=== PATIENT | female | born 1945 | race Caucasian/White ===

== ENCOUNTER → 2017-11-20 | Outpatient (CLI) | payer MEDICARE ==
[2017-11-20 12:48] LABS: BASOPHILS # (AUTO) 0.02 x10^3/uL (0-0.1); BASOPHILS % (AUTO) 0 % (0-1); EOSINOPHILS # (AUTO) 0.01 x10^3/uL (0-0.4); EOSINOPHILS % (AUTO) 0 % (1-7); LYMPHOCYTES # (AUTO) 1.35 x10^3/uL (1-3.4); LYMPHOCYTES % (AUTO) 21 % (22-44); MD NO; MEAN CORPUSCULAR HGB CONC 33.7 g/dL (32.4-35.8); MEAN CORPUSCULAR VOLUME 91.9 fL (80-100); MONOCYTES # (AUTO) 0.45 x10^3/uL (0.2-0.8); MONOCYTES % (AUTO) 7 % (2-9); NEUTROPHILS % (AUTO) 72 % (42-75); PLATELET COUNT 225 x10^3/uL (130-400); RED BLOOD COUNT 4.97 x10^6/uL (3.82-5.3); RED CELL DISTRIBUTION WIDTH 14.8 % (9.6-15.2)
[2017-11-20 12:57] LABS: MICROSCOPIC NOT IND
[2017-11-20 13:00] LABS: ALANINE AMINOTRANSFERASE 49 U/L (12-78); ALBUMIN 4.3 g/dL (3.4-5.0); ANION GAP 7 mmol/L (5-15); CHLORIDE 107 mmol/L (98-107); CREATININE 0.91 mg/dL (0.55-1.02)
[2017-11-20 13:02] LABS: ALKALINE PHOSPHATASE 87 U/L (45-117); BILIRUBIN,TOTAL 0.6 mg/dL (0.2-1.0); TOTAL PROTEIN 7.7 g/dL (6.4-8.2)
== END | disposition home or self-care (01) ==
LOC: STAR 11:25
PROVIDERS: ATTEND Urology
DX: Z01.818 Encounter for other preprocedural examination (principal); D49.519 Neoplasm of unspecified behavior of unspecified kidney
CPT/HCPCS: 36415; 80053; 81003; 85025; 87086; 93005

== ENCOUNTER 2017-12-03 05:32 | Inpatient (IN) | payer MEDICARE, OTHER ==
[~2017-12-03] VITALS: Ht 172.7 cm; Wt 70.9 kg
[2017-12-03] MEDS ORDERED: THROMBIN 5,000 UNIT VIAL TP ONE ×2 (06:07→10:48)
[2017-12-03] MEDS ORDERED: METHYLENE BLUE 10 MG/ML 10ML ONE (06:07)
[2017-12-03] MEDS ORDERED: LACTATED RINGERS 1,000 ML IV SCH (06:07)
[2017-12-03 06:10] VITALS: BP 176/96
[2017-12-03] MEDS ORDERED: FUROSEMIDE 20 MG/2 ML ONE (06:10)
[2017-12-03] MEDS ORDERED: MANNITOL PMX 20% 500 ML ONE (06:11)
[2017-12-03] MEDS ORDERED: GENTAMICIN 80 MG/2 ML ONE (06:11)
[2017-12-03] MEDS ORDERED: EPINEPHRINE 1 MG/ML, 1ML ONE (06:36)
[2017-12-03] MEDS ORDERED: MIDAZOLAM 1 MG/ML, 2ML ONE (07:11)
[2017-12-03] MEDS ORDERED: FENTANYL PF 250 MCG/5ML ONE ×3 (07:13→09:00)
[2017-12-03] MEDS ORDERED: PROPOFOL 10 MG/ML, 20ML ONE (07:17)
[2017-12-03] MEDS ORDERED: DEXAMETHASONE 4 MG/ML, 1ML ONE ×2 (07:17→07:47)
[2017-12-03] MEDS ORDERED: ROCURONIUM 10MG/ML,5ML ONE ×2 (07:17→09:56)
[2017-12-03] MEDS ORDERED: KETAMINE 10 MG/ML, 20ML ONE (07:27)
[2017-12-03] MEDS ORDERED: ACETAMINOPHEN 500 MG TABLET PO ONE (07:30)
[2017-12-03] MEDS ORDERED: OxyconTIN ER 10 MG TAB.ER PO ONE (07:30)
[2017-12-03] MEDS ORDERED: SCOPOLAMINE PATCH, 1.5MG PATCH.TD72 TD ONE (07:30)
[2017-12-03] MEDS ORDERED: ONDANSETRON ODT 8 MG PO ONE (07:30)
[2017-12-03] MEDS ORDERED: GABAPENTIN 300 MG CAPSULE PO ONE (07:30)
[2017-12-03] MEDS ORDERED: BUPIVACAINE/PF 0.25% ONE (07:32)
[2017-12-03] MEDS ORDERED: GLYCOPYRROLATE 0.2MG/1ML, 5ML ONE (07:47)
[2017-12-03] MEDS ORDERED: NEOSTIGMINE 1 MG/ML, 10ML ONE (07:47)
[2017-12-03] MEDS ORDERED: ALBUTEROL SULFATE 2.5 MG/3 ML NPPB PRN (09:30)
[2017-12-03] MEDS ORDERED: PROMETHAZINE 12.5 MG SUPP PR PRN (09:30)
[2017-12-03] MEDS ORDERED: OXYcodone 5 MG/5 ML ORAL.SOL UDC PO PRN (09:30)
[2017-12-03] MEDS ORDERED: hydrALAzine 20 MG/ML, 1ML IV PRN (09:30)
[2017-12-03] MEDS ORDERED: MIDAZOLAM 1 MG/ML, 2ML IV PRN (09:30)
[2017-12-03] MEDS ORDERED: ONDANSETRON ODT 8 MG PO PRN (09:30)
[2017-12-03] MEDS ORDERED: PROMETHAZINE 25 MG/ML, 1ML IV PRN (09:30)
[2017-12-03] MEDS ORDERED: MEPERIDINE/PF 25MG/0.5ML IVPush PRN (09:30)
[2017-12-03] MEDS ORDERED: LABETALOL 5MG/ML, 20ML IV PRN (09:30)
[2017-12-03] MEDS ORDERED: NALOXONE 0.4 MG/ML, 1ML ONE (11:44)
[2017-12-03] MEDS ORDERED: HYDROmorphone PCA 30 MG/30 ML IV PRN ×3 (12:00→19:30)
[2017-12-03 12:33] LABS: ANION GAP 8 mmol/L (5-15); CALCIUM 7.5 mg/dL (8.5-10.1); CHLORIDE 110 mmol/L (98-107); CREATININE 0.73 mg/dL (0.55-1.02)
[2017-12-03] MEDS ORDERED: FENTANYL PF 100 MCG/2ML ONE (12:44)
[2017-12-03] MEDS: FENTANYL PF 100 MCG/2ML IV PRN ×3 (12:45→13:31)
[2017-12-03] MEDS ORDERED: LABETALOL 5MG/ML, 20ML ONE (12:52)
[2017-12-03] MEDS ORDERED: hydrALAzine 20 MG/ML, 1ML ONE (13:02)
[2017-12-03] MEDS ORDERED: morphine SULFATE 10 MG/ML, 1ML ONE (13:37)
[2017-12-03] MEDS: MORPHINE SULFATE 4 MG/ML, 1ML IVPush PRN ×2 (13:39→13:46)
[2017-12-03 15:26] VITALS: BP 123/69
[2017-12-03] MEDS ORDERED: Postop antibiotic to be continued for longer than 24 hours XX PRN (15:30)
[2017-12-03] MEDS ORDERED: DO NOT GIVE MC SCH (15:30)
[2017-12-03] MEDS: LACTATED RINGERS 1,000 ML IV SCH (15:38)
[2017-12-03] MEDS: CEFAZOLIN PMX 1GM/50ML 50 ML IVPB SCH ×2 (16:39→23:59)
[2017-12-03] MEDS: ACETAMINOPHEN 500 MG TABLET PO SCH ×2 (17:09→21:30)
[2017-12-03 17:50] VITALS: BP 135/79
[2017-12-03 18:15] LABS: BASOPHILS # (AUTO) 0.01 x10^3/uL (0-0.1); BASOPHILS % (AUTO) 0 % (0-1); EOSINOPHILS % (AUTO) 0 % (1-7); LYMPHOCYTES % (AUTO) 3 % (22-44); MD NO; MEAN CORPUSCULAR HEMOGLOBIN 31.3 pg (27.0-34.8); MEAN CORPUSCULAR HGB CONC 33.4 g/dL (32.4-35.8); MEAN CORPUSCULAR VOLUME 93.8 fL (80-100); MEAN PLATELET VOLUME 7.8 fL (7.4-10.4); MONOCYTES # (AUTO) 0.78 x10^3/uL (0.2-0.8); MONOCYTES % (AUTO) 5 % (2-9); NEUTROPHILS # (AUTO) 13.28 x10^3/uL (1.8-6.8); NEUTROPHILS % (AUTO) 92 % (42-75); PLATELET COUNT 190 x10^3/uL (130-400); RED CELL DISTRIBUTION WIDTH 15.3 % (9.6-15.2)
[2017-12-03 20:03] VITALS: BP 115/69
[2017-12-04] VITALS (8 sets, daily range): BP systolic 111–147; BP diastolic 51–64
[2017-12-04] MEDS: ACETAMINOPHEN 500 MG TABLET PO SCH ×5 (03:33→23:52)
[2017-12-04] MEDS: LACTATED RINGERS 1,000 ML IV SCH ×2 (05:36→14:55)
[2017-12-04] MEDS: CEFAZOLIN PMX 1GM/50ML 50 ML IVPB SCH ×3 (07:56→23:52)
[2017-12-04 13:06] LABS: BASOPHILS # (AUTO) 0.05 x10^3/uL (0-0.1); BASOPHILS % (AUTO) 1 % (0-1); EOSINOPHILS % (AUTO) 0 % (1-7); LYMPHOCYTES # (AUTO) 0.91 x10^3/uL (1-3.4); LYMPHOCYTES % (AUTO) 9 % (22-44); MD NO; MEAN CORPUSCULAR HEMOGLOBIN 31.3 pg (27.0-34.8); MEAN CORPUSCULAR HGB CONC 33.9 g/dL (32.4-35.8); MEAN CORPUSCULAR VOLUME 92.4 fL (80-100); MEAN PLATELET VOLUME 7.4 fL (7.4-10.4); MONOCYTES # (AUTO) 0.68 x10^3/uL (0.2-0.8); MONOCYTES % (AUTO) 7 % (2-9); NEUTROPHILS # (AUTO) 8.44 x10^3/uL (1.8-6.8); NEUTROPHILS % (AUTO) 84 % (42-75); PLATELET COUNT 170 x10^3/uL (130-400); RED BLOOD COUNT 3.58 x10^6/uL (3.82-5.3)
[2017-12-04 13:16] LABS: ANION GAP 6 mmol/L (5-15); CALCIUM 7.6 mg/dL (8.5-10.1); CHLORIDE 101 mmol/L (98-107)
[2017-12-04] MEDS ORDERED: SODIUM CHLORIDE 0.9%, 500ML IVBOLUS ONE (18:30)
[2017-12-05 00:32] VITALS: BP 136/71
[2017-12-05 03:59] VITALS: BP 141/70
[2017-12-05] MEDS: ACETAMINOPHEN 500 MG TABLET PO SCH ×4 (05:42→23:27)
[2017-12-05 09:12] VITALS: BP 130/61
[2017-12-05] MEDS: LACTATED RINGERS 1,000 ML IV SCH ×2 (09:32→23:27)
[2017-12-05] MEDS: CEFAZOLIN PMX 1GM/50ML 50 ML IVPB SCH ×2 (09:33→18:35)
[2017-12-05 11:21] LABS: BASOPHILS % (AUTO) 0 % (0-1); EOSINOPHILS # (AUTO) 0.01 x10^3/uL (0-0.4); EOSINOPHILS % (AUTO) 0 % (1-7); LYMPHOCYTES # (AUTO) 0.47 x10^3/uL (1-3.4); LYMPHOCYTES % (AUTO) 5 % (22-44); MD NO; MEAN CORPUSCULAR HEMOGLOBIN 31.5 pg (27.0-34.8); MEAN CORPUSCULAR HGB CONC 34.1 g/dL (32.4-35.8); MEAN CORPUSCULAR VOLUME 92.6 fL (80-100); MEAN PLATELET VOLUME 7.9 fL (7.4-10.4); MONOCYTES # (AUTO) 0.71 x10^3/uL (0.2-0.8); MONOCYTES % (AUTO) 8 % (2-9); NEUTROPHILS # (AUTO) 8.27 x10^3/uL (1.8-6.8); NEUTROPHILS % (AUTO) 87 % (42-75); PLATELET COUNT 154 x10^3/uL (130-400); RED BLOOD COUNT 3.31 x10^6/uL (3.82-5.3); RED CELL DISTRIBUTION WIDTH 14.8 % (9.6-15.2)
[2017-12-05 11:35] LABS: ANION GAP 5 mmol/L (5-15); CALCIUM 7.6 mg/dL (8.5-10.1); CHLORIDE 104 mmol/L (98-107)
[2017-12-05 11:36] LABS: CREATININE 0.78 mg/dL (0.55-1.02)
[2017-12-05 12:00] VITALS: BP 130/63
[2017-12-05 14:05] VITALS: BP 130/61
[2017-12-05] MEDS ORDERED: HYDROmorphone 1 MG/ML, 1ML IV PRN (18:00)
[2017-12-05 21:17] VITALS: BP 138/70
[2017-12-06] MEDS: ONDANSETRON 2MG/ML, 2ML IV PRN ×2 (00:46→10:56)
[2017-12-06 01:57] VITALS: BP 156/76
[2017-12-06] MEDS: CEFAZOLIN PMX 1GM/50ML 50 ML IVPB SCH ×3 (02:30→18:48)
[2017-12-06] MEDS: LACTATED RINGERS 1,000 ML IV SCH ×2 (06:06→13:45)
[2017-12-06] MEDS: ACETAMINOPHEN 500 MG TABLET PO SCH ×2 (06:06→11:30)
[2017-12-06] MEDS: HYDROcodone/APAP 5/325 TABLET PO PRN ×3 (06:07→20:40)
[2017-12-06 09:32] VITALS: BP 147/75
[2017-12-06 13:05] VITALS: BP 163/73
[2017-12-06 20:23] VITALS: BP 150/73
[2017-12-06 20:36] VITALS: BP 152/77
[2017-12-06] MEDS: hydrALAzine 20 MG/ML, 1ML IV PRN (20:41)
[2017-12-06 21:00] VITALS: BP 144/72
[2017-12-07 00:23] VITALS: BP 161/82
[2017-12-07] MEDS: LACTATED RINGERS 1,000 ML IV SCH ×4 (00:25→21:42)
[2017-12-07] MEDS: CEFAZOLIN PMX 1GM/50ML 50 ML IVPB SCH ×3 (02:52→21:42)
[2017-12-07] MEDS: ONDANSETRON 2MG/ML, 2ML IV PRN (03:17)
[2017-12-07] MEDS: HYDROcodone/APAP 5/325 TABLET PO PRN ×3 (03:17→23:38)
[2017-12-07] MEDS: hydrALAzine 20 MG/ML, 1ML IV PRN ×2 (03:17→21:43)
[2017-12-07 05:39] VITALS: BP 138/68
[2017-12-07 06:55] VITALS: BP 157/77
[2017-12-07 14:58] VITALS: BP 157/81
[2017-12-07] MEDS ORDERED: BISACODYL 10 MG SUPP PR PRN (15:00)
[2017-12-07 18:56] VITALS: BP 171/75
[2017-12-07] MEDS ORDERED: OMNIPAQUE 350 MG/ML, 100ML BOTTLE ONE (20:16)
[2017-12-07 20:55] LABS: BASOPHILS # (AUTO) 0.04 x10^3/uL (0-0.1); BASOPHILS % (AUTO) 1 % (0-1); EOSINOPHILS # (AUTO) 0.07 x10^3/uL (0-0.4); EOSINOPHILS % (AUTO) 1 % (1-7); LYMPHOCYTES # (AUTO) 0.66 x10^3/uL (1-3.4); LYMPHOCYTES % (AUTO) 12 % (22-44); MD NO; MEAN CORPUSCULAR HEMOGLOBIN 31.3 pg (27.0-34.8); MEAN CORPUSCULAR HGB CONC 33.8 g/dL (32.4-35.8); MEAN CORPUSCULAR VOLUME 92.6 fL (80-100); MEAN PLATELET VOLUME 7.5 fL (7.4-10.4); MONOCYTES # (AUTO) 0.59 x10^3/uL (0.2-0.8); MONOCYTES % (AUTO) 10 % (2-9); NEUTROPHILS % (AUTO) 76 % (42-75); PLATELET COUNT 240 x10^3/uL (130-400); RED BLOOD COUNT 3.34 x10^6/uL (3.82-5.3)
[2017-12-07 20:59] LABS: ANION GAP 4 mmol/L (5-15); CALCIUM 8.3 mg/dL (8.5-10.1); CHLORIDE 105 mmol/L (98-107); CREATININE 0.74 mg/dL (0.55-1.02)
[2017-12-07 21:40] VITALS: BP 165/90
[2017-12-07] MEDS: DOCUSATE 100 MG CAPSULE PO SCH (21:42)
[2017-12-08] VITALS (9 sets, daily range): BP systolic 142–163; BP diastolic 68–84
[2017-12-08] MEDS ORDERED: SODIUM CHLORIDE NASAL SPRAY 45ML BOTTLE NAS PRN (05:00)
[2017-12-08 05:19] LABS: ALBUMIN 2.2 g/dL (3.4-5.0); ANION GAP 7 mmol/L (5-15); CALCIUM 7.9 mg/dL (8.5-10.1); CHLORIDE 104 mmol/L (98-107)
[2017-12-08 05:20] LABS: BASOPHILS # (AUTO) 0.02 x10^3/uL (0-0.1); BASOPHILS % (AUTO) 0 % (0-1); EOSINOPHILS # (AUTO) 0.09 x10^3/uL (0-0.4); EOSINOPHILS % (AUTO) 2 % (1-7); LYMPHOCYTES # (AUTO) 0.58 x10^3/uL (1-3.4); LYMPHOCYTES % (AUTO) 10 % (22-44); MD NO; MEAN CORPUSCULAR HEMOGLOBIN 30.8 pg (27.0-34.8); MEAN CORPUSCULAR HGB CONC 33.5 g/dL (32.4-35.8); MEAN PLATELET VOLUME 7.3 fL (7.4-10.4); MONOCYTES # (AUTO) 0.65 x10^3/uL (0.2-0.8); MONOCYTES % (AUTO) 11 % (2-9); NEUTROPHILS # (AUTO) 4.48 x10^3/uL (1.8-6.8); NEUTROPHILS % (AUTO) 77 % (42-75); PLATELET COUNT 213 x10^3/uL (130-400); RED BLOOD COUNT 3.22 x10^6/uL (3.82-5.3); RED CELL DISTRIBUTION WIDTH 15.1 % (9.6-15.2)
[2017-12-08 05:26] LABS: HEMOGLOBIN A1C 5.6 % (4.2-6.3)
[2017-12-08 05:29] LABS: ALANINE AMINOTRANSFERASE 25 U/L (12-78); ALKALINE PHOSPHATASE 136 U/L (45-117); BILIRUBIN,TOTAL 0.6 mg/dL (0.2-1.0); CHOL/HDL RATIO 3.3; CHOLESTEROL, TOTAL 117 mg/dL (140-239); CREATININE 0.63 mg/dL (0.55-1.02); FREE T4 (FREE THYROXINE) 1.19 ng/dL (0.76-1.46); HDL CHOL % 30 % (28-40); HDL CHOLESTEROL (DIRECT) 35 mg/dL (40-60); LDL CHOLESTEROL,CALCULATED 60 mg/dL (54-169); LDL/HDL RATIO 1.7 (0.5-3.0); TOTAL PROTEIN 5.3 g/dL (6.4-8.2); TRIGLYCERIDES 109 mg/dL (50-200); VLDL CHOLESTEROL 22 mg/dL (0-25)
[2017-12-08] MEDS: CEFAZOLIN PMX 1GM/50ML 50 ML IVPB SCH ×3 (06:09→21:15)
[2017-12-08] MEDS: DOCUSATE 100 MG CAPSULE PO SCH ×2 (08:46→21:15)
[2017-12-08] MEDS: hydrALAzine 20 MG/ML, 1ML IV PRN (08:49)
[2017-12-08] MEDS: HYDROcodone/APAP 5/325 TABLET PO PRN ×3 (08:49→21:16)
[2017-12-08] MEDS ORDERED: POTASSIUM CHLORIDE 20 MEQ TAB.ER.PRT PO ONE (10:00)
[2017-12-08] MEDS ORDERED: FUROSEMIDE 20 MG/2 ML IV ONE (10:00)
[2017-12-08] MEDS ORDERED: BISACODYL 10 MG SUPP PR PRN (12:00)
[2017-12-08] MEDS: AMLODIPINE 5 MG TABLET PO SCH (13:17)
[2017-12-08] MEDS ORDERED: LACTATED RINGERS 1,000 ML IV SCH (15:30)
[2017-12-08] MEDS ORDERED: MAGNESIUM CITRATE 300ML ORAL SOL PO PRN (17:00)
[2017-12-09 02:00] VITALS: BP 160/73
[2017-12-09 05:23] LABS: CHLORIDE 104 mmol/L (98-107)
[2017-12-09 05:30] LABS: ANION GAP 5 mmol/L (5-15); CALCIUM 8.4 mg/dL (8.5-10.1); CREATININE 0.65 mg/dL (0.55-1.02)
[2017-12-09] MEDS: CEFAZOLIN PMX 1GM/50ML 50 ML IVPB SCH ×3 (05:31→21:10)
[2017-12-09 07:24] VITALS: BP 170/86
[2017-12-09] MEDS: DOCUSATE 100 MG CAPSULE PO SCH ×2 (07:25→21:00)
[2017-12-09] MEDS: HYDROcodone/APAP 5/325 TABLET PO PRN ×2 (07:25→19:22)
[2017-12-09] MEDS: AMLODIPINE 5 MG TABLET PO SCH ×2 (07:25→10:51)
[2017-12-09] MEDS ORDERED: POTASSIUM CHLORIDE 20 MEQ TAB.ER.PRT PO ONE (10:00)
[2017-12-09] MEDS ORDERED: FUROSEMIDE 40 MG/4 ML IV ONE (10:00)
[2017-12-09] MEDS: LISINOPRIL 5 MG TABLET PO SCH (10:51)
[2017-12-09 12:52] VITALS: BP 153/66
[2017-12-09] MEDS ORDERED: DIPHENHYDRAMINE 25 MG CAPSULE PO ONE (21:00)
[2017-12-09 21:16] VITALS: BP 152/72
[2017-12-10 01:13] VITALS: BP 151/74
[2017-12-10] MEDS: CEFAZOLIN PMX 1GM/50ML 50 ML IVPB SCH (05:26)
[2017-12-10 07:11] VITALS: BP 164/77
[2017-12-10] MEDS: LISINOPRIL 5 MG TABLET PO SCH (09:30)
[2017-12-10] MEDS: AMLODIPINE 5 MG TABLET PO SCH (09:31)
[2017-12-10] MEDS: DOCUSATE 100 MG CAPSULE PO SCH (09:31)
[2017-12-10] MEDS: HYDROcodone/APAP 5/325 TABLET PO PRN (09:40)
[2017-12-10] MEDS ORDERED: HYDR-3240 PO (13:00)
[2017-12-10] MEDS ORDERED: DOCU-131 PO (13:01)
[2017-12-10] MEDS ORDERED: LISI5TAB7 PO (15:35)
[2017-12-10] MEDS ORDERED: AMLO5TAB2 PO (15:35)
== END 2017-12-10 13:30 | disposition home or self-care (01) | DRG 657 ==
LOC: OUT 05:32 → 4WST 14:38 → OUT 14:55 → 4WST 14:56 → DCLOUNGE 12-10 13:00
PROVIDERS: ADMIT Urology; ATTEND Urology
PROC: BT42ZZZ Ultrasonography of Left Kidney (ICD-10-PCS; 2017-12-03)
PROC: 0TB10ZZ Excision of Left Kidney, Open Approach (ICD-10-PCS; principal; 2017-12-03 07:30)
PROC: 30233N1 Transfusion of Nonautologous Red Blood Cells into Peripheral Vein, Percutaneous Approach (ICD-10-PCS; 2017-12-08)
DX: C64.2 Malignant neoplasm of left kidney, except renal pelvis (principal); E44.0 Moderate protein-calorie malnutrition; E87.1 Hypo-osmolality and hyponatremia; J90 Pleural effusion, not elsewhere classified; R33.9 Retention of urine, unspecified; G89.18 Other acute postprocedural pain; R09.02 Hypoxemia; D64.9 Anemia, unspecified; E83.51 Hypocalcemia; I10 Essential (primary) hypertension; Z90.710 Acquired absence of both cervix and uterus; Z82.49 Family history of ischemic heart disease and other diseases of the circulatory system; Z68.23 Body mass index [BMI] 23.0-23.9, adult
CPT/HCPCS: 36415; 71045; 71046; 71275; 74018; 76998; 80048; 80053; 80061; 82040; 83036; 83615; 83735; 84439; 84443; 85014; 85018; 85025; 85379; 86850; 86900; 86923; 88305; 88307; 88331; 93306; C1729; C1767; J0171; J0690; J1100; J1170; J1940; J2250; J2310; J2405; J2704; J2710; J3010; J3490; Q0162; Q9967; C1760; J0360; J1580; J7040; J7120; P9016; Q0163; Q9968